=== PATIENT | male | born 1950 | race Caucasian/White ===

== ENCOUNTER 2020-11-04 19:24 | Emergency (ER) | payer MEDICARE ==
[~2020-11-04] VITALS: Ht 182.9 cm; Wt 97.5 kg
[~2020-11-04 19:24] MED LIST: Synthroid25 MCG PO
== END 2020-11-05 01:32 | disposition short-term general hospital (02) ==
LOC: ER 19:24
DX: R33.9 Retention of urine, unspecified (principal); Z88.8 Allergy status to other drugs, medicaments and biological substances
CPT/HCPCS: 51702; 51798; 96374-59; 96376; 99284-25; A9270; J1170

== ENCOUNTER → 2022-01-04 | Outpatient (CLI) | payer MEDICARE | END | disposition home or self-care (01) | LOC: LAB SHORT 14:40 → PLD 14:40 | DX: D48.5 Neoplasm of uncertain behavior of skin (principal) | CPT/HCPCS: 88304 ==